=== PATIENT | male | born 1965 | race African-American/Black ===

== ENCOUNTER 2018-01-11 01:36 | Emergency (ER) | payer SELFPAY ==
[~2018-01-11] VITALS: Ht 190.5 cm; Wt 160.0 kg
[2018-01-11 01:56] VITALS: BP 191/99
[2018-01-11] MEDS ORDERED: ONDANSETRON HCL 4MG/2ML INJ IV STA (02:53)
[2018-01-11] MEDS ORDERED: MORPHINE SULFATE 4 MG/ML CPJ (NOT FOR IM USE) IV STA (02:53)
[2018-01-11] MEDS ORDERED: SODIUM CHLORIDE 0.9% 500 ML IV ONE (02:53)
[2018-01-11] MEDS ORDERED: ACETAMINOPHEN 325MG TABLET PO ONE (03:00)
[2018-01-11] MEDS ORDERED: CLONIDINE 0.2MG TABLET PO ONE (03:00)
== END 2018-01-11 03:20 | disposition left against medical advice (07) ==
LOC: ER 01:36
DX: R50.9 Fever, unspecified (principal); R07.89 Other chest pain; R51 Headache; I10 Essential (primary) hypertension; F12.10 Cannabis abuse, uncomplicated; Z98.890 Other specified postprocedural states
CPT/HCPCS: 93005; 99283; J7040